=== PATIENT | female | born 1980 | race African-American/Black ===

== ENCOUNTER 2024-11-06 06:39 | Outpatient (CLI) | payer OTHER, SELFPAY ==
--- NOTE | ~2024-11-06 | NM_ITS ---
EXAMINATION: NM thyroid scan w uptake DATE: 11/07/2024 09:23 INDICATION: COMPARISON: Type 2 diabetes mellitus without complications TECHNIQUE: 517 microcuries I-123 was administered orally in capsule form. Scintigraphic images of th e thyroid gland were obtained at 24 hours. Thyroid uptake was calculated by the technologist. FINDINGS: The thyroid uptake is 3.8% (normal 10-30%), with the right lobe measuring 1.8% uptake and the left 2. 0%. There is no focal area of decreased or increased activity to suggest hypofunctioning or hyperfunc tioning nodule. IMPRESSION: 1. Normal thyroid scintigraphy with diffusely decreased 24-hour iodine uptake. Differential would in clude primary hyperthyroidism, secondary central hypothyroidism or thyroiditis. Reviewed, dictated and finalized at location A. IMPRESSION: 1. Normal thyroid scintigraphy with diffusely decreased 24-hour iodine uptake. Differential would include primary hyperthyroidism, secondary central hypothyr oidism or thyroiditis.
== END 2024-11-06 06:40 | disposition home or self-care (01) ==
PROVIDERS: PCP Emergency Medicine; Visit Provider Internal Medicine
DX: E05.10 Thyrotoxicosis with toxic single thyroid nodule without thyrotoxic crisis or storm (principal); E11.319 Type 2 diabetes mellitus with unspecified diabetic retinopathy without macular edema; E78.5 Hyperlipidemia, unspecified; R79.89 Other specified abnormal findings of blood chemistry; Z86.32 Personal history of gestational diabetes
CPT/HCPCS: 78014; A9516

== ENCOUNTER 2024-11-19 14:26 | Outpatient (CLI) | payer OTHER, SELFPAY ==
--- NOTE | ~2024-11-19 | US_ITS ---
EXAMINATION: US thyroid DATE: 11/19/2024 15:02 INDICATION: Thyrotoxicosis with toxic single thyroid nodule TECHNIQUE: Multiple ultrasound images of the thyroid were obtained. COMPARISON: None. FINDINGS: The right thyroid lobe measures 5.4 x 1.6 x 2.2 cm. The left thyroid lobe measures 6.4 x 1.9 x 2.1 c m. 5 mm wider than tall mixed solid and cystic right thyroid nodule which is wider than tall with sm ooth margins, internal vascular flow in the hypoechoic solid component and without echogenic foci. (T I-RADS 3, mildly suspicious , FNA if >=2.5 cm, annual followup is >=1.5 cm). There are a couple 2 mm very hypoechoic potentially anechoic nodules in the left thyroid lobe to small to characterize. IMPRESSION: 1. A few <6 mm bilateral thyroid nodules which remain well below criteria for either biopsy or follow -up. Reviewed, dictated and finalized at location A. IMPRESSION: 1. A few <6 mm bilateral thyroid nodules which remain well below criteria for e ither biopsy or follow-up.
--- OUTSIDE RECORDS SUMMARY | 2024-11-19 14:36 | XMS_ITS | Referral Summary ---
Author Organization [facility] Address [address] [place] [address] Care Team Providers Care Broadcaster Name Role Phone Yolande Villegas MD Primary Care Provider + [phone] Encounters Date Type Department Care Team Description 09/03/2024 1:20 PM CDT - 09/03/2024 11:59 PM CDT Hospital Encounter [facility] Building [address] [address] Discharge Disposition: Discharge to home or self care from Last 3 Months Allergies No known active allergies Medications furosemide (LASIX) 20 mg tabletIndications: Edema Take 1 tablet (20 mg total) by mouth 2 (two) times a day Active losartan (COZAAR) 50 mg tabletIndications: hypertension Take 1 tablet (50 mg total) by mouth 2 (two) times a day Active dapagliflozin propanediol (FARXIGA) 10 mg tabletIndications: type 2 diabetes mellitus Take 1 tablet (10 mg total) by mouth daily Active rosuvastatin (CRESTOR) 20 mg tabletIndications: hyperlipidemia Take 1 tablet (20 mg total) by mouth nightly Active insulin degludec (TRESIBA) 100 unit/mL (3 mL) pen for injectionIndicatio ns:type 2 diabetes mellitus Inject 0.24 mL (24 Units total) under the skin daily Active tirzepatide (MOUNJARO) 5 mg/0.5 mL pen injector injectionIndicatio ns:type 2 diabetes mellitus Inject 0.5 mL (5 mg total) under the skin every 7 days Every Sunday Active norethindrone-e.es tradioL-iron (LOESTIN 24 FE) 1 mg-20 mcg (24)/75 mg (4) per tabletIndications: Contraception Take 1 tablet by mouth daily Active acetaminophen (TYLENOL) 325 mg tabletIndications: Fever,Pain Take 2 tablets (650 mg total) by mouth every 4 (four) hours as needed for pain, headaches or fever 30 tablet 1 5 Active HYDROcodone-acetam inophen (NORCO) 5-325 mg per tabletIndications: Pain Take 1 tablet by mouth every 8 (eight) hours as needed for pain (severe pain only) 15 tablet 5 Active Active Problems Problem Noted Date Diagnosed Date Acute appendicitis, unspecified acute appendicit is type 06/25/2024 Social History Tobacco Use Types Packs/Day Years Used Date Smoking Tobacco: Never Smokeless Tobacco: Never Tobacco Cessation:Counseling Given: Not Answered [facility] Utilities Answer Date Recorded In the past [address] [facility] [employer], oil, or water [employer] threatened to shut off services in your home? No 06/25/2024 Social Connection and Isolat ion Panel [NHANES] Answer Date Recorded In a typical week, how many times do you talk on the phone with family, friends, or neighbors? More than three times a week 06/25/2024 How often do you get togethe r with friends or relatives? More than three times a week 06/25/2024 How often do you attend chur ch or caodaism services? 1 to 4 times per year 06/25/2024 Do you belong to any clubs o r organizations such as sabianism groups, unions, fraternal or athletic groups, or school groups? No 06/25/2024 How often do you attend meet ings of the clubs or organizations you belong to? Never 06/25/2024 Are you , , di vorced, , never , or living with a partner? Living with partner 06/25/2024 Overall Financial Resource Strain (CARDIA) Answe r Date Recorded How hard is it for you to pa y for the very basics like food, housing, medical care, and heating? Not hard at all 06/25/2024 Hunger Vital Sign Answer Date Recorded Within the past 12 months, y ou worried that your food would run out before you got the money to buy more. Never true 06/25/19 25 Within the past 12 months, t he food you bought just didn't last and you didn't have money to get more. Never true 06/25/2024 PRAPARE - Transportation Answer Date Re corded In the past 12 months, has l ack of transportation kept you from medical appointments or from getting medications? No 06/14 In the past 12 months, has l ack of transportation kept you from meetings, work, or from getting things needed for daily living? No 06/25/2024 Housing Stability Vital Sign Answer Elmer e Recorded In the last 12 months, was t here a time when you were not able to pay the mortgage or rent on time? No 06/25/2024 In the past 12 months, how m any times have you moved where you were living? 0 06/25/2024 At any time in the past 12 m [facility], were you homeless or living in a penitentiary (including now)? No 06/25/2024 Personal Safety Answer Date Recorded Have you ever been in or are you currently in a harmful physical or emotional relationship or is someone making you feel afraid or unsafe? 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 [employer] Gender Identity Not on file Sexual Orientation Not on file Last Filed Vital Signs Vital Sign Reading Time Taken Comments Blood Pressure 101/67 06/26/2024 8:10 AM WELDING MACHINE OPERATOR ELECT[employer] GAS Pulse 100 06/26/2024 8:10 AM WELDING MACHINE OPERATOR [employer]LECTRO [employer] Temperature 36.9 C (98.4 F) 06/26/2024 8:10 AM WELDING MACHINE OPERATOR ELECTRO GAS Respiratory Rate 16 06/26/2024 8:10 AM WELDING MACHINE OPERATOR ELECTRO GAS Oxygen Saturation 99% 06/26/2024 8:10 AM WELDING MACHINE OPERATOR ELECTRO GAS Inhaled Oxygen Concentration - - Weight 82.9 kg (182 lb 11.2 oz) 06/25/2024 3:40 AM WELDING MACHINE OPERATOR ELECTRO G[employer] Height 162.6 cm (5' 4) 06/25/2024 3:40 AM WELDING MACHINE OPERATOR ELECTRO GAS Body Mass Index 31.36 06/25/2024 3:40 AM WELDING MACHINE OPERATOR ELECTRO GAS Plan of Treatment Not on file Procedures Procedure Name Priority Date/Time Associated Diagnosis Comments SURGICAL PATHOLOGY Routine 09/03/2024 12 :10 PM CDT from Last 3 Months Results * Surgical pathology (09/03/2024 12:10 PM CDT) Breast biopsy, needle core 09/03/2024 12:10 PM CDT 09/03/2024 1:51 PM CDT Narrative 09/08/2024 2:05 PM CDT [facility] Department of Pathology [address] [place] [address] Note to Patients: This report may contain a detailed description of human tissue sent by a health care provider to the laboratory for pathologic evaluation. The content of this report is essential for diagnosis and may provide important critical findings. This information may be unfamiliar to patients to review without a medical professional present. It is advised that the patient review this report in the presence of a health care provider who can answer questions and explain the details. Final Report Patient Name: DONOVAN BRUNO : 1980 (Age: 44) Gender: F Address: [address] [place] [address] [facility] #: [id number] Service: DEFAULT Location: Patient Type: [facility] SPECIMEN Taken: 09/03/2024 Received: 09/03/2024 Accessioned: 09/03/2024 Reported: 09/08/2024 Physician(s): Marco Bell M.D. Diagnosis: A. Left breast at 1:00 position, needle core biopsy - Benign breast parenchyma with prominent vasculature - Negative for atypia or malignancy Rakel Krause M.D. Report Electronically Reviewed and Signed Out By Rakel Krause M.D. 09/08/2024 14:05:22 Specimen(s) Received: A: Left breast core biopsy at 1:00 position Microscopic Description: Unless gross-only is specified, the final diagnosis for each specimen is based on a microscopic examination of each tissue sample. Clinical History: The patient is a 44-year-old woman with left breast mass. Operative procedure: left breast core biopsy at 1:00. Gross Description Received in a single formalin filled container labeled with the patient's identifiers and left breast core biopsy at 1:00 are four cores of soft, brown henao tissue ranging in length from 0.9-1.1 cm and ranging in diameter from 0.1-0.2 cm. Labeled A 1 and A2. Jar 0. Total formalin fixation time = 30.5 hours. Cold ischemia time = less than 1 hour. [facility]/17/2309/04/2024 11:53 Una Juardo MS, PA (ASC Microscopic slide review and interpretation for this case was performed at [facility], Department of Surgical Pathology, [address] [facility] [place] [place] [address], [place] [address] CLIA # [id number] Marco Bell MD LAB PATHOLOGY ORDERABLES Final Result from Last 3 Months Insurance [employer] OPEN ACCESS [facility] Advance Directives For more information, please contact: [phone] * Full Code (Latest Code Status on File) Date Activated Date Inactivated Comments 06/25/2024 2:38 AM 06/26/2024 3:13 PM Care Teams Broadcaster Relationship Specialty [place] [address] [place] [id number] PCP - General Emergency Medicine 10/26/22
--- OUTSIDE RECORDS SUMMARY | 2024-11-19 14:37 | XMS_ITS | Clinical Summary ---
Author Organization [facility] Address [address] [place] [address] Care Team Providers Care Junior Programmer Name Role Phone Yolande Villegas MD Primary Care Provider + [phone] Allergies No known active allergies Medications furosemide [...] appendicitis, unspecified acute appendicit is type 06/25/2024 Encounters Date Type Department Care Team Description 09/03/2024 1:20 PM CDT - 09/03/2024 11:59 PM CDT Hospital Encounter [facility] Building [address] [place] [address] Discharge Disposition: Discharge to home or self care from Last 3 Months Social History Tobacco Use Types Packs/Day Years Used Date Smoking Tobacco: Never Smokeless Tobacco: Never Tobacco Cessation:Counseling Given: Not Answered [facility] Utilities Answer Date Recorded In the past 12 months has [employer], [employer], oil, or water [employer] threatened to shut off services in your [...] any clubs o r organizations such as gnosticist groups, unions, fraternal or athletic groups, or [...] any time in the past 12 m [facility], were you homeless or living in a assisted (including now)? No 06/25/2024 Personal Safety Answer Date Recorded Have you ever been in or are you currently in a harmful physical or emotional relationship or is someone making you feel afraid or unsafe? 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 Gender Identity Not on file Sexual Orientation Not on file Obstetrics History Last Filed Vital Signs Vital Sign Reading Time Taken Comments Blood Pressure 101/67 06/26/2024 8:10 AM PRINTING WORKER SUPERVISOR Pulse 100 06/26/2024 8:10 AM PRINTING WORKER SUPERVISOR Temperature 36.9 C (98.4 F) 06/26/2024 8:10 AM PRINTING WORKER SUPERVISOR Respiratory Rate 16 06/26/2024 8:10 AM PRINTING WORKER SUPERVISOR Oxygen Saturation 99% 06/26/2024 8:10 AM PRINTING WORKER SUPERVISOR Inhaled Oxygen Concentration - - Weight 82.9 kg (182 lb 11.2 oz) 06/25/2024 3:40 AM PRINTING WORKER SUPERVISOR Height 162.6 cm (5' 4) 06/25/2024 3:40 AM PRINTING WORKER SUPERVISOR Body Mass Index 31.36 06/25/2024 3:40 AM PRINTING WORKER SUPERVISOR Plan of Treatment Health Maintenance Due Date Last Done Comments Breast Cancer Screening-Mammogram 1980 Cervical Cancer Screening 1980 Depression Screening 1980 Hepatitis C Screening 1980 Varicella Vaccines (1 of 2 - 13+ 2-dose series) 1994 Hepatitis B Screening 1999 Regular Well Visit/Exam 18-64 1999 Covid-19 Vaccine (3 - season) 2024 08/27/2020, 07/30/2020 Influenza Vaccine (Season Ended) 2025 02/15/2017, 02/22/2016 DTaP/Tdap/Td Vaccine (7 - Td or Tdap) 11/15/2026 11/15/2016, 12/19/1995, 08/07/1986, Additional history exists Pneumococcal vaccine <65 Aged Out 04/20/2014 No longer eligible based on patient's age to complete this topic HPV Vaccines Aged Out No longer eligi ble based on patient's age to complete this topic Procedures Procedure Name Priority Date/Time Associated Diagnosis Comments SURGICAL PATHOLOGY Routine 09/03/2024 12 :10 PM CDT from Last 3 Months Results * Surgical pathology (09/03/2024 12:10 PM CDT) Breast biopsy, needle core 09/03/2024 12:10 PM CDT 09/03/2024 1:51 PM CDT Narrative 09/08/2024 2:05 PM CDT [facility] Department of Pathology [address] [place] [address] Note to Patients: This report may contain [...] : 1980 (Age: 44) Gender: F Address: [address] [place] [address] [facility] #: [id number] Service: DEFAULT Location: Patient Type: [facility] SPECIMEN Taken: 09/03/2024 Received: 09/03/2024 Accessioned: 09/03/2024 [...] ischemia time = less than 1 hour. [facility]/09/04/2024 11:53 Una Jurado MS, PA (ASC Microscopic slide review and interpretation for this case was performed at [facility], Department of Surgical Pathology, [address] [facility] [place] [place] [id number], [place] [address] CLIA # [id number] Marco Bell MD LAB PATHOLOGY ORDERABLES Final Result from Last 3 Months Insurance [employer] OPEN ACCESS Advance Directives For more information, please contact: [phone] * Full Code (Latest Code Status on File) Date Activated Date Inactivated Comments 06/25/2024 2:38 AM 06/26/2024 3:13 PM Care Teams Junior Programmer Relationship Specialty Start Date End Date Yolande Villegas MD [address] [place] [address] PCP - General Emergency Medicine 10/26/22
== END 2024-11-19 14:27 | disposition home or self-care (01) ==
PROVIDERS: PCP Emergency Medicine; Visit Provider Internal Medicine
DX: E05.10 Thyrotoxicosis with toxic single thyroid nodule without thyrotoxic crisis or storm (principal); R79.89 Other specified abnormal findings of blood chemistry
CPT/HCPCS: 76536